=== PATIENT | female | born 1975 | race Caucasian/White ===

== ENCOUNTER 2019-05-28 08:01 | Day surgery (SDC) | payer BC ==
[~2019-05-28 08:01] MED LIST: Buffered Lidocaine 1% SYRIN* 1 ML/SYRINGE INTRADERM ONE; Famotidine IV* 10 MG/ML 2 ML (20 mg) IV ONE; Famotidine IV* 10 MG/ML 2 ML (20 mg) ONE; Lactated Ringers 1000 ML Bag* 1,000 ML IV SCH
[2019-05-28] MEDS ORDERED: Lidocaine 2% PF * 5 ML VIAL ONE (08:26)
[2019-05-28] MEDS ORDERED: Midazolam* 1 MG/ML 5 ML VIAL (5 MG) ONE (08:26)
[2019-05-28] MEDS ORDERED: Propofol* 10 MG/ML 20 ML BTL ONE (08:26)
[2019-05-28] MEDS ORDERED: Ondansetron INJ* 2 MG/ML VIAL ONE (08:26)
[2019-05-28] MEDS ORDERED: Ketorolac INJ* 30 MG/ML 1 ML VIAL ONE (08:26)
[2019-05-28] MEDS ORDERED: Lidocaine 1% INJ* 10 MG/ML 30 ML SDV ONE (09:24)
[2019-05-28] MEDS ORDERED: Naloxone* 0.4 MG/ML 1 ML VIAL IV PRN (10:00)
[2019-05-28 10:32] VITALS: BP 117/76
--- NOTE | 2019-05-29 00:07 | OP ---
CC: Dr. Morales OPERATIVE REPORT: DATE OF OPERATION: 05/28/19 DATE OF : 73 SURGEON: Pema Morales MD MINERAL ECONOMIST: MICHAEL West ANESTHESIA: Local MAC. PRE-OP DIAGNOSIS: Right carpal tunnel syndrome. POST-OP DIAGNOSIS: Right carpal tunnel syndrome. OPERATIVE PROCEDURE: Right carpal tunnel release. ESTIMATED BLOOD LOSS: Zero. TOURNIQUET TIME: About 10 minutes. INDICATION FOR PROCEDURE: Liana is a 43-year-old female with numbness and tingling in the median ne rve distribution of right hand. She presents for right carpal tunnel release. DESCRIPTION OF PROCEDURE: The patient was brought to the operating room and was given a sedation ane sthetic and a local infiltration of 10 cc of 1% plain lidocaine in the palm of her right hand. Skin of her right hand and forearm was prepped and draped in the usual sterile fashion. The hand and fore arm were exsanguinated and the tourniquet elevated to 250 mmHg. A longitudinal incision was made in the palm in line with the ring finger. We dissected through the subcutaneous tissue down to the karimi sverse carpal ligament. The ligament was divided sharply with a knife and then more proximally with the scissors. The nerve was dissected free from the surrounding tissue and there was an area of mode rate compression in the mid portion of the ligament. The wound was irrigated and the skin edges were reapproximated with 4-0 nylon suture. The wound was dressed with Xeroform, 4x4, Webril, and an Chi wrap. The patient tolerated the procedure well and was brought to the recovery room in good conditio n. [id number]/[facility] #: [id number]
== END 2019-05-28 10:48 | disposition home or self-care (01) ==
LOC: OREAST 08:01 → MERGE 09:00 → OREAST 10:48
PROVIDERS: ATTEND Orthopaedic Surgery
DX: G56.01 Carpal tunnel syndrome, right upper limb (principal); G47.33 Obstructive sleep apnea (adult) (pediatric); E03.9 Hypothyroidism, unspecified; F41.8 Other specified anxiety disorders; J45.909 Unspecified asthma, uncomplicated; Z87.891 Personal history of nicotine dependence
CPT/HCPCS: J1885; J2250; J2405; J2704

== ENCOUNTER 2019-06-29 08:25 | Day surgery (SDC) | payer BC, MEDICAID ==
--- NOTE | 2019-06-23 12:27 | HP ---
PREOPERATIVE HISTORY AND PHYSICAL: DATE OF ADMISSION/SURGERY: 06/29/19 DATE OF OFFICE VISIT/ENCOUNTER: 06/07/19 ATTENDING SURGEON: Pema Morales MD.* (DICTATED BY MICHAEL MARSH) PROCEDURE: Left wrist carpal tunnel release. HISTORY OF PRESENT ILLNESS: This is a 43-year-old female who has had ongoing symptoms of left carpal tunnel syndrome for several months. This is a work- related injury. She recently had a right carpal tunnel release performed and has done quite well with that. She is now interested in pursuing left wrist carpal tunnel release. The symptoms have been quite severe and she is having trouble with various activities of daily life. Symptoms have been progressively worsening. PAST MEDICAL HISTORY: Significant for: 1. Hypothyroidism. 2. Asthma. 3. GERD. 4. Anxiety. 5. Seasonal allergies. 6. Sleep apnea. 7. Hypercholesterolemia. 8. Depression. PAST SURGICAL HISTORY: 1. Right carpal tunnel release. 2. Hysterectomy. 3. Mesh sling. CURRENT MEDICATIONS: 1. Advair Diskus 500/50 mcg per dose inhaled 1 puff by mouth twice daily. 2. Alprazolam 0.5 mg 1 in the a.m., one-half in the afternoon, 1 at night. 3. Duloxetine HCl 60 mg twice daily. 4. Gabapentin 300 mg 3 times a day. 5. Levothyroxine sodium 75 mcg daily. 6. Pantoprazole sodium 40 mg daily. 7. Tolterodine tartrate ER 2 mg as directed. 8. Topiramate 100 mg daily. 9. Venlafaxine HCl 75 mg daily. 10. Vitamin D2 5000 units 1 cap once a week. ALLERGIES: ADHESIVE and OMNICEF. FAMILY MEDICAL HISTORY: Arthritis, ovarian cancer. SOCIAL HISTORY: The patient is and lives with her family. 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 She is a former smoker. She denies recreational drug use and drinks alcohol on occasion. REVIEW OF SYSTEMS: Negative for general, cephalic, cardiovascular, respiratory , GI, , other musculoskeletal, integumentary, endocrine, neurologic, and hematologic symptoms. Infectious Disease: Negative for MRSA, hepatitis C, HIV. PHYSICAL EXAMINATION GENERAL: Well-developed, well-nourished 43-year-old female, in no acute distress. VITAL SIGNS: Height 5 feet 5 inches, weight 245 pounds. Pulse rate 80, blood pressure 118/78. HEENT: Normocephalic, atraumatic. Pupils are equal, round, and reactive to light and accommodation. Extraocular movements are intact. Throat is clear. NECK: Supple. No palpable lymph nodes. PULMONARY: Lungs are clear to auscultation bilaterally. No wheezes, rales, or rhonchi. CARDIOVASCULAR: Regular rate and rhythm. S1, S2. No murmurs, rubs, or gallops. No edema. ABDOMEN: Positive bowel sounds. Soft, nontender. NEUROLOGICAL: Alert and oriented x3. Cranial nerves II through XII are intact. Sensation is intact to light touch. MUSCULOSKELETAL: On exam of her left hand and wrist, there is no visible muscle wasting. She has a positive Tinel sign at the median nerve, decreased sensation in the median nerve distribution. IMPRESSION: Left wrist carpal tunnel syndrome. PLAN: The patient is scheduled to undergo a left wrist carpal tunnel release with Dr. Morales on 06/29/19. She will return to the office 10 days postop for followup and suture removal. A prescription for Tylenol with Codeine was e- scribed to the patient's pharmacy for postoperative pain management. MICHAEL MARSH [id number]/[facility] #: [id number] NICOLE
[~2019-06-29 08:25] MED LIST changes: +Dexamethasone IV* 4 MG/ML 1 ML (4 MG) IV SLOW PU ONE; -Famotidine IV* 10 MG/ML 2 ML (20 mg) ONE
[2019-06-29] MEDS ORDERED: Dexamethasone IV* 4 MG/ML 1 ML (4 MG) ONE ×2 (08:49)
[2019-06-29] MEDS ORDERED: Famotidine IV* 10 MG/ML 2 ML (20 mg) ONE ×2 (08:49)
[2019-06-29] MEDS ORDERED: fentaNYL* 50 MCG/ML 2 ML VIAL (100 MCG VIAL) IV PRN (09:11)
[2019-06-29] MEDS ORDERED: HYDROcodone/ACETAMIN 5-325 MG* 1 TAB PO PRN (09:11)
[2019-06-29] MEDS ORDERED: Naloxone* 0.4 MG/ML 1 ML VIAL IV PRN (09:11)
[2019-06-29] MEDS ORDERED: Ondansetron INJ* 2 MG/ML VIAL IV PRN (09:11)
[2019-06-29] MEDS ORDERED: Ketorolac INJ* 30 MG/ML 1 ML VIAL IV PRN (09:11)
[2019-06-29] MEDS ORDERED: Propofol* 10 MG/ML 20 ML BTL ONE ×2 (09:16)
[2019-06-29] MEDS ORDERED: fentaNYL* 50 MCG/ML 2 ML VIAL (100 MCG VIAL) ONE ×2 (09:16)
[2019-06-29] MEDS ORDERED: Midazolam* 1 MG/ML 2 ML VIAL (2 MG) ONE ×2 (09:16)
[2019-06-29] MEDS ORDERED: Lidocaine 2% PF * 5 ML VIAL ONE ×2 (09:17)
[2019-06-29] MEDS ORDERED: Lidocaine 1% INJ* 10 MG/ML 30 ML SDV ONE ×2 (09:24)
[2019-06-29 10:33] VITALS: BP 116/80
--- NOTE | 2019-06-29 13:31 | OP ---
DATE OF OPERATION: 06/29/19 [facility] DATE OF : 73 SURGEON: Pema Luther MD ([place]) PROOF OPERATOR: MICHAEL Fatima ANESTHESIA: Local MAC. PRE-OP DIAGNOSIS: Left carpal tunnel syndrome. POST-OP DIAGNOSIS: Left carpal tunnel syndrome. OPERATIVE PROCEDURE: Left carpal tunnel release. ESTIMATED BLOOD LOSS: Zero. TOURNIQUET TIME: Ten minutes. INDICATIONS FOR PROCEDURE: Liana is a 43-year-old female who has numbness and tingling in the median nerve distribution of her left hand. She presents for left carpal tunnel release. DESCRIPTION OF PROCEDURE: The patient was brought to the operating room, was given a sedation anesthetic and a local infiltration of 10 cc of 1% plain lidocaine in the palm of her left hand. The skin of her left hand and forearm was prepped and draped in the usual sterile fashion. The hand and forearm were exsanguinated and the tourniquet elevated to 250 mmHg. A longitudinal incision was made in the palm in line with the ring finger. We dissected through the subcutaneous tissue down to the transverse carpal ligament. The ligament was divided sharply with a knife and then more proximally with the scissors. The nerve was dissected free from the surrounding tissue and there was an area of moderate compression at the mid portion of the ligament. The wound was irrigated and the skin edges reapproximated with 4- 0 nylon suture. The wound was dressed with Xeroform, 4x4, Webril, and an Chi wrap. The patient tolerated the procedure well and was brought to the recovery room in good condition. [id number]/[facility] #: [id number] NICOLE
== END 2019-06-29 18:48 | disposition home or self-care (01) ==
LOC: OREAST 08:25
PROVIDERS: ATTEND Orthopaedic Surgery
DX: G56.02 Carpal tunnel syndrome, left upper limb (principal); E03.9 Hypothyroidism, unspecified; J45.909 Unspecified asthma, uncomplicated; K21.9 Gastro-esophageal reflux disease without esophagitis; F41.9 Anxiety disorder, unspecified; G47.33 Obstructive sleep apnea (adult) (pediatric); E78.00 Pure hypercholesterolemia, unspecified; F32.9 Major depressive disorder, single episode, unspecified; Z87.891 Personal history of nicotine dependence; E78.5 Hyperlipidemia, unspecified
CPT/HCPCS: J1100; J2250; J2704; J3010